=== PATIENT | male | born 2000 | race Two or more races ===

== ENCOUNTER → 2023-12-15 | Emergency (ER) | payer OTHER ==
[~2023-12-15] VITALS: Ht 162.6 cm; Wt 95.7 kg
[~2023-12-15] MED LIST: CETIRIZINE HCL 5MG/5ML BLIST.PACK PO ONE
== END | disposition left against medical advice (07) ==
LOC: ER 00:56
DX: Z53.21 Procedure and treatment not carried out due to patient leaving prior to being seen by health care provider (principal)

== ENCOUNTER → 2024-09-29 | Emergency (ER) | payer OTHER ==
[~2024-09-29] VITALS: Ht 160 cm; Wt 100.7 kg
[2024-09-29 00:49] VITALS: BP 128/54; O2SAT 97
== END | disposition left against medical advice (07) ==
LOC: ER 00:08
DX: Z53.21 Procedure and treatment not carried out due to patient leaving prior to being seen by health care provider (principal)